=== PATIENT | female | born 2005 | race Hispanic/Latino ===

== ENCOUNTER → 2025-04-13 | Emergency (ER) | payer SELFPAY ==
[~2025-04-13] VITALS: Ht 170.2 cm; Wt 91.2 kg
[2025-04-13 03:54] LABS: RAPID GROUP A STREP negative (NEGATIVE)
[2025-04-13 03:57] LABS: SARS-CoV-2, RNA, NAAT NEGATIVE SARS CoV-2 (NEGATIVE)
[2025-04-13 04:10] LABS: INFLUENZA TYPE A Negative For Type A (NEGATIVE); INFLUENZA TYPE B Negative For Type B (NEGATIVE)
[2025-04-13 04:11] VITALS: BP 115/66; PULSE 72; RESP 18; TEMP 98.1; O2SAT 99
--- NOTE | 2025-04-13 04:19 | ERN ---
ED Note History of Present Illness Stated Complaint: WEAKNESS, 3 PERIODS IN A MONTH, COUGH, CONGESTION Chief Complaint: Multiple Complaints Time Seen by MD: 03:20 Dictation: This is a 19-year-old obese female who presented to the emergency room with complaints of generalized body weakness cough congestion stuffy nose and fever going on for the past few days. She also reported that she had 3 periods with a an a month. No travel. Temperature 97.2 pulse 88 respirations 16 blood pressure 120/75 with a pulse oximetry of 100% on room air BMI is 32 Allergies: Coded Allergies: No Known Allergies (Unverified Allergy, Unknown, 04/13/25) Past Medical History Past Medical History: No Pertinent History Surgical History: None Family History: Negative Social History: Negative RN Note Reviewed/Agreed w/PFSH: Yes Review of System Dictation Constitutional: Positive for subjective fever,chills, and general weakness Eyes: Negative for injury, pain,redness, and discharge ENT: Negative for injury,pain or swelling Cardiovascular: Negative for chest pain, palpitations, and edema Respiratory: Negative for shortness of breath, cough, and wheezing, Abdomen/GI: Negative for abdominal pain, nausea, vomiting, diarrhea, and constipation Back: Negative for injury and pain : Negative for injury, bleeding and discharge MS/Extremity: Negative for injury and deformity Skin: Negative for rash, and discoloration Neuro: Negative for headache, weakness, numbness, tingling, and seizure Psych: Negative for suicide ideation, homicidal ideation, and hallucinations Initial Vital Sign VS Vital Signs Date Time Temp Pulse Resp B/P (MAP) Pulse Ox O2 Delivery O2 Flow Rate FiO2 04/13/25 03:18 97.2 88 16 120/75 100 Room Air 0 04/13/25 04:11 21 Physical Exam Dictation General: awake, alert, NAD Head/Face: Normocephalic, atraumatic Eyes: PERRL, EOMI, vision at baseline ENT: oral cavity clear, TMs clear, no signs of infection Neck: Trachea midline, supple, no nuchal rigidity Cardiovascular: RRR, normal S1/S2, No MRGs, no JVD Respiratory: CTAB, no respiratory distress, No rales or wheezes Abdomen: Soft, non-tender, non-distended, normal bowel sounds, no guarding or rebound. Skin: Warm, dry, normal turgor, no rash MS/Extremity: Pulses equal, no cyanosis, neurovascular intact, FROM Neuro: COAx4, GCS 15, strength 5/5, CN 2-12 intact, normal cerebellar exam, normal gait, Psych: Normal behavior, mood, and affect normal Extremities-trace edema without any palpable cords, Homans sign is negative Results (Laboratory/Radiology) Laboratory/Radiology Laboratory Tests Test 04/13/25 03:25 Influenza Type A Antigen Negative For Type A Influenza Type B Antigen Negative For Type B SARS-CoV-2, RNA, NAAT NEGATIVE SARS CoV-2 Group A Streptococcus Rapid negative (NEGATIVE) Labs Reviewed?: Yes ED Course ED Course Orders Procedure Category Date Status Time Influenza Type A & B, LAB 04/13/25 Complete Rapid 03:30 Rapid (Group A Strep) LAB 04/13/25 Complete 03:30 Covid Rna Naat LAB 04/13/25 Complete 03:30 ,Urine Test LAB 04/13/25 Logged 03:30 Vital Signs Date Time Temp Pulse Resp B/P (MAP) Pulse Ox O2 Delivery O2 Flow Rate FiO2 04/13/25 04:11 98.1 72 18 115/66 99 Room Air* 0 21 04/13/25 03:18 97.2 88 16 120/75 100 Room Air 0 Medical Decision Making MDM Differential diagnosis: Influenza, COVID, RSV, streptococcal pharyngitis, otitis media, acute viral syndrome This is a 19-year-old obese female who presented to the emergency room with complaints of generalized body weakness cough congestion stuffy nose and fever going on for the past few days. She also reported that she had 3 periods with a an a month. No travel. Temperature 97.2 pulse 88 respirations 16 blood pressure 120/75 with a pulse oximetry of 100% on room air BMI is 32 4:15 a.m. nasopharyngeal swabs for influenza COVID and strep are all negative. I updated the patient that she has a URI symptoms which may simply be a viral and run its course. She is instructed to use [id number] multi symptom relief medication. Rationale: Tests considered and ordered secondary to shared decision making include: Nasopharyngeal swabs Previous outside records reviewed: Old ER visits. Risk of complication and/or morbidity or mortality of patient management: None Medications-Per medication reconciliation Need for hospitalization: Patient does not meet criteria for hospitalization. Need for emergency major/minor surgery: No There are no social concerns with this patient. Prescription drug management Prescriptions will include symptomatic care Patient's prior external medical records from other ER visits were reviewed by me as indicated. Prior testing and results from previous visits were reviewed. Prior tests were taken into account with medical decision making and resource utilization, independent historian/historians were used to obtain complete m edical history. I independently interpreted the test that were performed, results were reviewed by me and considered findings on radiology if ordered. Medical management and examination interpretation discussions were had by me with other qualified healthcare professionals as indicated for the patient's care. Problem List Problem List: (1) Acute viral syndrome DX & DISP Disposition: Discharge Departure Impression: Primary Impression: Acute viral syndrome Condition: Stable Additional Instructions: Patient and the caregiver have been informed of all the diagnostic tests and the imaging conducted during the today's visit to the emergency room and has verbalized understanding of the results I have personally reviewed and interpreted all diagnostic exams performed here in the ER today as well as the vital signs documented by the nursing staff. The patient is now being discharged to home and should follow up with the primary care physician or the specialist as directed by the ER staff. Encourage p.o. fluids and stay hydrated [id number] cough medicines. Tylenol for fever and aches. Recommended getting established with a PCP or burn crew member to get her menstrual periods addressed Referrals: SELF,REFERRAL (PCP) SANDRA SHERMAN MD Apr 13, 2025 04:19
== END ==
LOC: EDH 03:16
DX: B34.9 Viral infection, unspecified (principal); Z20.822 Contact with and (suspected) exposure to COVID-19
CPT/HCPCS: 81025; 87635; 87804; 87880; 99283